=== PATIENT | male | born 1970 | race Caucasian/White ===

== ENCOUNTER 2016-04-01 11:35 | Emergency (ER) | payer MEDICAID ==
[~2016-04-01] VITALS: Ht 172.7 cm; Wt 70.3 kg
[~2016-04-01 11:35] MED LIST: EMTR1TAB5 PO; OXYC-34 PO
[2016-04-01 11:41] VITALS: BP 117/76
== END 2016-04-01 11:57 | disposition home or self-care (01) ==
LOC: ER 11:37
DX: M54.5 Low back pain (principal); M87.9 Osteonecrosis, unspecified
CPT/HCPCS: 99282; A4606; Z7610